=== PATIENT | male | born 2000 | race Caucasian/White ===

== ENCOUNTER 2022-09-01 14:26 | Emergency (ER) | payer OTHER ==
--- NOTE | 2022-09-01 15:26 | XRAY Report ---
PROCEDURE: Foot 3 View LT INDICATIONS: Trauma TECHNIQUE: 3 views of the foot were acquired. COMPARISON: None FINDINGS: Bones: Mildly displaced calcaneal fracture, seen on lateral view. Soft tissues: Soft tissue swelling surrounding the fracture. IMPRESSION: Mildly displaced calcaneal fracture seen on lateral view. Consider CT to further characterize extent of injury. Reviewed by: Lan Coyne MD on 09/01/2022 3:24 PM [facility] Approved by: Lan Coyne MD on 09/01/2022 3:24 PM PST Station ID: [id number]
--- NOTE | 2022-09-01 15:38 | ED Physician Documentation ---
PD HPI LOWER EXT INJURY - Stated complaint Stated Complaint: LT FT INJ - Chief complaint Chief Complaint: Trauma Ext - History obtained from History obtained from: Patient - Additional information Additional information: Slipped off ladder at work and landed on L foot. Heelp pain Declines pain meds No other injuries. PD PAST MEDICAL HISTORY - Past Medical History Past Medical History: No Cardiovascular: None Respiratory: None Neuro: None Endocrine/Autoimmune: None GI: None : None HEENT: None Psych: None Musculoskeletal: None Derm: None - Past Surgical History Past Surgical History: Yes HEENT: Other - Present Medications Home Medications: Ambulatory Orders Medication Instructions Recorded Confirmed HYDROcod/ACETAM 5/325 [[place] 5/325] 1 - 2 tab PO Q6H PRN #15 tablet 09/01/22 - Allergies Allergies/Adverse Reactions: Allergies Allergy/AdvReac Type Severity Reaction Status Date / Time No Known Drug Allergies Allergy Verified 09/01/22 14:30 - Social History Does the pt smoke?: No Smoking Status: Never smoker Does the pt drink ETOH?: Yes Does the pt have substance abuse?: No - Immunizations Immunizations are current?: No - POLST Patient has POLST: No PD ED PE NORMAL - Vitals Vital signs reviewed: Yes - General General: Alert and oriented X 3, No acute distress - Neck Neck: No bony TTP - Back Back: No spinal TTP - Extremities Extremities: Other (TTP L calcaneus, Nl NVI L foot. R calcaneus NTTP) - Neuro Neuro: Alert and oriented X 3, Normal speech Results - Vitals Vitals: Vital Signs - 24 hr 09/01/22 14:30 Temperature 36.9 C Heart Rate 98 Respiratory 16 Rate Blood Pressure 137/79 H O2 Saturation 98 Oxygen O2 Source Room air - Rads (name of study) XR L foot and CT L foot Radiology: Final report received, EMP read indepedently Procedures - Splint (location) - Minor LLE Splint applied by: Physician Type of splint: Other (minerva nye) PD Medical Decision Making - ED course ED course: 22-year-old gentleman presents with isolated left heel injury. He has a calcaneus fracture on x-ray and on CT showing a very comminuted fracture. Case just discussed by phone with on-call orthopedist, Dr. Curtis who will see in follow-up. Note made that special attention was paid to the examination of the entire spine and to the right foot without evidence of fractures there. Departure - Departure Disposition: 01 Home, Self Care Clinical Impression: Left calcaneal fracture Qualifiers: Encounter type: initial encounter Calcaneus location: unspecified portion of calcaneus Fracture type: closed Fracture alignment: displaced Qualified Code(s): S92.002A - Unspecified fracture of left calcaneus, initial encounter for closed fracture Condition: Good Record reviewed to determine appropriate education?: Yes Instructions: Calcaneus Fx Repair Follow-Up: Orthopedic Care [Provider Group] Prescriptions: HYDROcod/ACETAM 5/325 [[place] 5/325] 1 - 2 tab PO Q6H PRN #15 tablet PRN Reason: Pain Comments: You are seen today for a fracture of your left calcaneus. This may require surgery. Keep the splint on and dry, do not remove it. If you need stronger pain medicine I sent prescription electronically to [facility] in [place]. Call the orthopedist office today for next available appointment. Until then do not bear weight on the left foot and keep it elevated is much as possible. I am prescribing a short course of narcotic pain medication for you. These are potentially dangerous and addictive medications that should be used carefully. These medications may constipate you. Take an kgfm-iaa-jnpfqae stool softener (docusate) twice daily with plenty of water while taking these medications. If you go 24 hours without a bowel movement, take dimg-ccy-gwjthxs miralax, per package instructions. Do not drink or drive while taking these medications. If you received narcotic or sedating medications while in the emergency department, do not drive for 24 hours. Store this medication in a safe, secure place and out of reach of children. It is a violation of federal law to give or sell this medication to another person or to use in a manner other than prescribed. The ED will not refill narcotic prescriptions, including prescriptions lost or stolen. To dispose of unwanted medications: 1. [facility] at [address] in [place] has a medication drop box. They accept prescription medications (in pill form) Wednesday through Wednesday 9:00 a.m. to 5:00 p.m. 2. The [facility] [employer] accepts prescription medications (in pill form only) for disposal year round. Call for more information. 3. Contact the [facility] for the next [facility] sponsored prescription drug collection event. , [phone], or [phone]; Note that many narcotic pain relievers also contain Tylenol/acetaminophen. Please ensure that your total dose of acetaminophen from all sources does not exceed 3 g (3000 mg) per day.
--- NOTE | 2022-09-01 16:18 | CT Report ---
PROCEDURE: LOWER EXTREMITY WO - LT INDICATIONS: calcaneus fracture TECHNIQUE: Noncontrast 1 mm . Axial sections acquired from the distal tibial shaft to the talar dome, with coron al and sagittal reformats. For radiation dose reduction, the following was used: automated exposure control, adjustment of mA and/or kV according to patient size. COMPARISON: Left lateral radiograph from the same day.. FINDINGS: Image quality: Excellent. Bones: Acute comminuted fracture involving weight-bearing portion of calcaneus is seen with fracture line extending to posterior, superior, inferior and distal cortex of the calcaneus. There is up to 7 mm diastases in superior calcaneal fracture site adjacent to subtalar joint and up to 7 mm diastases involving superior and lateral aspect of distal calcaneal fracture site. Medial leg displaced infer omedial distal calcaneal fracture fragment is also seen with up to 6 mm diastases at fracture site. N o other fracture or dislocation is seen in midfoot and hindfoot. No suspicious bony lesions. No gross osteochondral injuries of talar dome. Soft tissues: Marked soft tissue swelling and edema surrounding calcaneal fracture site is seen. No significant joint effusion or gross intra-articular loose bodies. Achilles tendon is intact. Extensor , flexor, and peroneus tendons are grossly intact. No abnormal soft tissue calcifications. Impression: 1. Severely comminuted and mildly displaced calcaneal fracture as above. No other fracture or disloca tion. 2. Significant soft tissue swelling and edema surrounding calcaneal fracture sites. No full-thickness tendon rupture. No abnormal soft tissue calcifications. Reviewed by: Tavares Hawley MD on 09/01/2022 4:17 PM PST Approved by: Tavares Hawley MD on 09/01/2022 4:17 PM PST Station ID: [id number]
[2022-09-01 16:56] VITALS: BP 135/74
== END 2022-09-01 16:57 | disposition home or self-care (01) ==
LOC: EDSEX → ED 14:26
DX: S92.002A Unspecified fracture of left calcaneus, initial encounter for closed fracture (principal); W11.XXXA Fall on and from ladder, initial encounter; Y93.9 Activity, unspecified; Y99.0 Civilian activity done for income or pay
CPT/HCPCS: 29505